=== PATIENT | male | born 1985 | race Caucasian/White ===

== ENCOUNTER 2018-06-08 20:25 | Emergency (ER) | payer SELFPAY ==
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
--- NOTE | 2018-06-08 21:37 | CT ---
INDICATION: Pain TECHNIQUE: CT head without contrast. COMPARISON: None. FINDINGS: CSF spaces: Within normal limits for age. Brain parenchyma: The otero-white differentiation is normal. No sign of mass, hemorrhage, or midline shift. Skull base and calvarium: Mucosal thickening within the ethmoid sinuses with mucous retention cysts within the right maxillary sinus. The visualized orbits are grossly unremarkable. No skull fractures. IMPRESSION: Mild sinus disease, otherwise unremarkable head CT. Please note that all CT scans at this facility use dose modulation, iterative reconstruction, and/or weight-based dosing when appropriate to reduce radiation dose to as low as reasonably achievable. Dictated by Robbi Dwyer MD @ Jun 08 2018 9:33PM Signed by Dr. Robbi Dwyer @ Jun 08 2018 9:35PM
--- NOTE | 2018-06-08 21:39 | CT ---
INDICATION: Pain TECHNIQUE: CT cervical spine without contrast. COMPARISON: None FINDINGS: Vertebrae: Alignment is normal. There are no fractures or suspicious bony lesions. Discs and facet joints: Disc spaces and facets are within normal limits. Extraspinal findings: Prevertebral soft tissues, visualized airway, and visualized lungs are unremarkable. IMPRESSION: Unremarkable cervical spine CT. Please note that all CT scans at this facility use dose modulation, iterative reconstruction, and/or weight-based dosing when appropriate to reduce radiation dose to as low as reasonably achievable. Dictated by Robbi Dwyer MD @ Jun 08 2018 9:33PM Signed by Dr. Robbi Dwyer @ Jun 08 2018 9:37PM
== END 2018-06-08 21:50 | disposition home or self-care (01) ==
LOC: MW.ED 20:25
DX: S49.92XA Unspecified injury of left shoulder and upper arm, initial encounter (principal); F17.210 Nicotine dependence, cigarettes, uncomplicated; V87.8XXA Person injured in other specified noncollision transport accidents involving motor vehicle (traffic), initial encounter
CPT/HCPCS: 70450; 70450-26; 72125; 72125-26; 73030-26-LT; 73030-LT; 99283; 99284-25

== ENCOUNTER 2022-02-03 23:00 | Emergency (ER) | payer MEDICAID, OTHER ==
[2022-02-03] MEDS ORDERED: metroNIDAZOLE 250 MG Tab PO ONE ×2 (23:22→23:24)
== END 2022-02-03 23:47 | disposition home or self-care (01) ==
LOC: MW.ED 23:00
DX: Z20.2 Contact with and (suspected) exposure to infections with a predominantly sexual mode of transmission (principal)
CPT/HCPCS: 99283; A9270-GY

== ENCOUNTER 2023-01-03 22:41 | Emergency (ER) | payer MEDICAID ==
[2023-01-04 00:35] LABS: C. TRACHOMATIS BY PCR NOT DETECTED; N. GONORRHOEAE BY PCR NOT DETECTED
== END 2023-01-04 00:48 | disposition home or self-care (01) ==
LOC: MW.ED 22:41
DX: Z20.2 Contact with and (suspected) exposure to infections with a predominantly sexual mode of transmission (principal)
CPT/HCPCS: 87491; 87591; 99281; 99283

== ENCOUNTER 2023-12-17 11:03 | Emergency (ER) | payer MEDICAID ==
[2023-12-17] MEDS: Lidocaine 1% 10 ML MDV INFILT ONE (11:20)
[2023-12-17] MEDS: Diphtheria,Pertussis(Acell),Tetanus Vaccine 0.5 ML Syringe IM ONE (11:45)
[2023-12-17] MEDS: Bacitracin Oint 1 GM U/D Packet TOP ONE (11:46)
== END 2023-12-17 12:00 | disposition home or self-care (01) ==
LOC: MW.ED 11:03
DX: S51.812A Laceration without foreign body of left forearm, initial encounter (principal); Z23 Encounter for immunization; Z75.8 Other problems related to medical facilities and other health care; W54.0XXA Bitten by dog, initial encounter
CPT/HCPCS: 12002; 90471; 90715; 99283; 99283-25; J3490